=== PATIENT | male | born 1945 | race Caucasian/White ===

== ENCOUNTER → 2017-03-30 | Outpatient (CLI) | payer BC ==
--- NOTE | 2017-03-30 14:28 | PCVCIMAG ---
APPROVED REPORT Study performed: 03/30/2017 12:10:10 EXAM: Comprehensive 2D, Doppler, and color-flow Echocardiogram Patient Location: Echo lab Room #: 1Status: routine BSA: 2.35 HR: 58 bpmBP: 114/62 mmHg Rhythm: Sinus Bradycardia Other Information Study Quality: Technically Difficult Indications COPD Atrial Fibrillation Dyspnea Hypertension/HDD [place], Stents 2D Dimensions LVEF(%): 58.10 (>50%) IVSd: 13.47 (7-11mm)LVOT Diam: 22.80 (18-24mm) LVDd: 45.32 mm PWd: 8.63 (7-11mm)Ascending Ao: 39.31 (22-36mm) LVDs: 31.48 (25-40mm) Left Atrium: 41.18 (27-40mm) Aortic Root: 30.95 mm LV Single Plane 4CH: 57.08 % LV Single Plane 2CH: 56.09 %Gibson's LVEF: 56.58 % Biplane EF: 59.1 % Volumes Left Atrial Volume (Systole) Single Plane 4CH: 28.76 mLSingle Plane 2CH: 61.43 mL Biplane LA Volume: 45.00 mLLA ESV Index: 19.00 mL/m2 Aortic Valve AoV Peak Sherwin.: 1.34 m/s AO Peak Gr.: 7.14 mmHgLVOT Max P.82 mmHg LVOT Max V: 0.95 m/s [place] Vmax: 2.90 cm2 AI Vmax: 3.89 m/s AI [place]: 1.56 m/s2 AI PHT: 720.14 ms Mitral Valve E/A Ratio: 1.1 MV Decel. Time: 182.81 ms MV E Max Sherwin.: 0.53 m/s MV A Sherwin.: 0.48 m/s IVRT: 155.71 ms TDI E/Lateral E': 7.57E/Medial E': 13.25 Medial E' Sherwin.: 0.04 m/s Lateral E' Sherwin.: 0.07 m/s Pulmonary Valve PV Peak Sherwin.: 0.73 m/sPV Peak Gr.: 2.11 mmHg Pulmonary Vein P Vein S: 0.50 m/sP Vein A: 0.30 m/s P Vein D: 0.30 m/sP Vein A Dur.: 90.0 msec P Vein S/D Ratio: 1.67 Tricuspid Valve TR Peak Sherwin.: 2.67 m/s TR Peak Gr.: 28.58 mmHg TV Vmax: 0.74 m/sPA Pressure: 36.00 mmHg Left Ventricle The left ventricle is normal size. There is normal LV segmental wall motion. There is normal left ventricular wall thickness. Left ventricular systolic function is normal. The left ventricular ejection fraction is within the normal range. LVEF is 55-60%. Grade I - abnormal relaxation pattern. Right Ventricle The right ventricle is normal size. The right ventricular systolic function is normal. Atria The left atrium size is normal. The right atrium size is normal. Aortic Valve The aortic valve is normal in structure. Mild to moderate aortic regurgitation. There is no aortic valvular stenosis. Mitral Valve The mitral valve is normal in structure. Mild mitral regurgitation. No evidence of mitral valve stenosis. Tricuspid Valve The tricuspid valve is normal in structure. Mild tricuspid regurgitation. Pulmonic Valve The pulmonary valve is normal in structure. Mild pulmonic regurgitation. Great Vessels The aortic root is normal in size. IVC is normal in size and collapses with >50% inspiration Pericardium There is no pericardial effusion. <Conclusion> The left ventricle is normal size. Left ventricular systolic function is normal. The right ventricle is normal size. The left atrium size is normal. Mild to moderate aortic regurgitation. Mild mitral regurgitation. Mild tricuspid regurgitation.
== END | disposition home or self-care (01) ==
LOC: PCVCIMAG 12:02
PROVIDERS: ATTEND Internal Medicine Cardiovascular Disease
DX: I08.3 Combined rheumatic disorders of mitral, aortic and tricuspid valves (principal); I48.91 Unspecified atrial fibrillation; I25.10 Atherosclerotic heart disease of native coronary artery without angina pectoris; I10 Essential (primary) hypertension; E78.00 Pure hypercholesterolemia, unspecified; J44.9 Chronic obstructive pulmonary disease, unspecified; I25.2 Old myocardial infarction; G47.33 Obstructive sleep apnea (adult) (pediatric); Z88.8 Allergy status to other drugs, medicaments and biological substances; Z90.49 Acquired absence of other specified parts of digestive tract; Z95.5 Presence of coronary angioplasty implant and graft; Z79.899 Other long term (current) drug therapy; Z86.73 Personal history of transient ischemic attack (TIA), and cerebral infarction without residual deficits
CPT/HCPCS: 93005; 93306; G0463

== ENCOUNTER → 2018-04-19 | Outpatient (CLI) | payer BC ==
[~2018-04-19] MED LIST: REGADENOSON 0.4 MG/5 ML DISP.SYRIN. IV ONE
--- NOTE | 2018-04-19 11:08 | PCVCIMAG ---
APPROVED REPORT Imaging Protocol: Rest Tc-99m/Stress Tc-99m 1 day Study performed: 04/19/2018 08:15:31 Indication: CAD, Afib Patient Location: Out-Patient Stress Nurse: HANNAH Quiroz Tech:Genaro ShabbirKRISTIN Ht: 6 ft 0 in Wt: 238 lbs BSA: 2.29 m2 HR: 60 bpm BP: 137/66 mmHg BMI: 32.27 Rhythm: Normal Sinus Rhythm Medical History Medical History: Age, Hyperlipidemia, HTN, Afib, COPD, CAD, NC, Carotid artery disease Medications: Albuterol, Atorvastatin, Symbicort, Carvedilol, Ramipril, Xarelto, Dyazide Allergies: Hydrocodone, Vicodin Previous Cardiac Procedures: PCI Exercise History: Sedentary Physical Disabilities: Multiple back surgeries Meds Held (24 hrs): Carvedilol Resting Data Rest SPECT myocardial perfusion imaging was performed in supine position 45 minutes following the intravenous injection of 11.3 mCi of Tc-99m Sestamibi. Time of rest injection: 829 Date: 04/19/2018 Administration Route: IV Administration Site: Right Arm Pharmacologic Stress Pharmacologic stress test was performed by injecting Regadenoson 0.4 mg IV push over 10-15 seconds immediately followed by the intravenous injection of 33.7 mCi of Tc-99m Sestamibi. Time of stress injection: 944 Date: 04/19/2018 Administration Route: IV Administration Site: Right Arm Gated Stress SPECT was performed 45 minutes after stress injection. The images were gated to evaluate regional wall motion and calculate left ventricular ejection fraction. Comments Prior Sudy 04/2016 Nonischemic Stress Test Details Stress Test: Pharmacologic stress testing performed using 0.4 mg of regadenoson per 5 mL given IV over 10 seconds. Reason for pharmacologic stress test: Back Surgeries. HRMax Heart Rate (APMHR): 147 bpm Resting HR: 60 bpmTarget HR (85% APMHR): 124 bpm Max HR Achieved: 76 bpm % of APMHR: 51 Recovery HR: 74 bpm BP Resting BP: 137/66 mmHg Recovery BP: 118/72 mmHg ECG Resting ECG: Sinus Rhythm Stress ECG: Sinus Rhythm ST Change: Non-ischemic Arrhythmia: None Recovery ECG: Sinus Rhythm Clinical Reason for Termination: Completed protocol Stress Symptoms: Dyspnea Exercise duration: min 55 sec Symptoms resolved during recovery. Study Quality Study: Good Artifact: Moderate Diaphragmatic artifact Study Data Post stress, the left ventricular ejection was 71%.. SSS: 10 SRS: 9 SDS: 2 TID = 0.95. Perfusion There is a medium area of moderately reduced uptake in the mid and apical segment of the inferior wall which is seen on the stress images as well as the resting images. This area thickens and moves normally and is most consistent with attenuation artifact. Wall Motion Normal left ventricular wall motion. Nuclear Conclusion ECG Findings: negative for ischemia Clinical Findings: non-diagnostic Nuclear Findings: negative for ischemia Exercise Capacity: not assessed Left Ventricular Function: normal Risk Study: low This study is of low probability for inducible ischemia or prior infarct. Normal global and segmental LV systolic function. Artifact: Moderate Diaphragmatic artifact
== END ==
LOC: PCVCIMAG 07:35
PROVIDERS: ATTEND Internal Medicine Cardiovascular Disease
DX: I25.10 Atherosclerotic heart disease of native coronary artery without angina pectoris (principal); E78.5 Hyperlipidemia, unspecified; I10 Essential (primary) hypertension; J44.9 Chronic obstructive pulmonary disease, unspecified; I21.9 Acute myocardial infarction, unspecified; R06.09 Other forms of dyspnea
CPT/HCPCS: 78452; 93017; A9500; J2785